=== PATIENT | female | born 1995 | race Two or more races ===

== ENCOUNTER → 2024-09-24 | Day surgery (SDC) | payer MEDICAID, SELFPAY ==
--- NOTE | 2024-09-23 12:25 | ESHP_ITS ---
RE: VERO BUI : 1995 DATE OF ADMISSION: 09/24/2024 HISTORY OF PRESENT ILLNESS: The patient came to my office on 09/23/2024 for detailed preop history and physical examination. HISTORY OF PRESENTING COMPLAINT: The patient has got a mass over the dorsum of the right wrist. It is mobile, but it is quite painful. It interferes with the routine daily activities and activities of daily living. The patient wanted to be excised as it is causing a lot of difficulty. PAST MEDICAL HISTORY: No history of diabetes mellitus, asthma, seizures, or high blood pressure. PAST SURGICAL HISTORY: Nil. DRUG HISTORY: Pain medications on and off. ALLERGIES: NIL KNOWN. FAMILY HISTORY AND SOCIAL HISTORY: Noncontributory. PHYSICAL EXAMINATION: GENERAL: Normal built lady. VITAL SIGNS: Pulse 86 per minute. Blood pressure 118/76. NECK: Soft, supple. No masses felt. Trachea is centrally placed. CARDIOVASCULAR: First and second heart sound normal. No murmur heard. LUNGS: Bilateral vesicular breath sounds. CHEST: Clear. ABDOMEN: Soft. No masses felt. Bowel sounds present. EXTREMITIES: Right wrist examination revealed swelling over the dorsum of the right wrist. It is about 3/4 inch in diameter. It is soft and mobile. It seems to be attached to the tendon. Clinically, it is a ganglion cyst. ASSESSMENT AND PLAN: Since the patient is symptomatic and is causing her difficulty and activities of daily living is affected. Therefore, excision of the cyst was discussed and advised. Risks with anesthesia was explained and that includes, but not limited to reaction to anesthetic agents, cardiac arrest and rarely it might be fatal. Risk with operations include infection and if that happens, the patient will need further surgical procedure. Other risks include delayed healing, wound dehiscence, etc. Sometimes there is a possible damage to tendon. No guarantees given regarding outcomes of the procedure. Accordingly, surgery is booked for 09/24/2024. Appropriate lab work done. DT: 11:57:36 TT: 12:23:00 Ref: [id number] - TID: [id number]
[2024-09-23 12:48] VITALS: BMI 28.5
[2024-09-23 13:18] LABS: Basophils # (Auto) 0.1 Thou/mm3 (0.0-0.2); Basophils % (Auto) 1 % (0-2.5); Eosinophils # (Auto) 0.2 Thou/mm3 (0.0-0.5); Eosinophils % (Auto) 3 % (0-10); Hematocrit 38.9 % (36.0-46.0); Hemoglobin 12.5 g/dL (12.0-16.0); Immature Granulocytes % (Auto) 0 % (0-0); Immature Granulocytes Auto 0.02 Thou/mm3 (0.00-0.00); Lymphocytes # (Auto) 3.1 Thou/mm3 (1.0-4.8); Lymphocytes % (Auto) 40 % (10-50); Mean Corpuscular HGB Conc 32.1 g/dl (31.0-37.0); Mean Corpuscular Hemoglobin 26.7 pg (25.0-35.0); Mean Corpuscular Volume 83 fL (80-100); Monocytes # (Auto) 0.4 Thou/mm3 (0.0-0.8); Monocytes % (Auto) 5 % (0-12); Neutrophils # (Auto) 3.9 Thou/mm3 (1.8-7.7); Neutrophils % (Auto) 51 % (37-80); Nucleated Red Blood Cell % 0 /100 WBC (0); Platelet Count 301 Thou/mm3 (140-440); RDW Standard Deviation 42.5 fL (36.4-46.3); Red Blood Count 4.68 Miln/mm3 (4.00-5.20); White Blood Count 7.7 Thou/mm3 (3.6-11.0)
[2024-09-23 13:31] LABS: HCG,Qualitative Serum Negative
[2024-09-23 13:32] LABS: Anion Gap 8 (7-16); BUN/Creatinine Ratio 15 Ratio (12-20); Blood Urea Nitrogen 9 mg/dL (9-23); Calcium 9.5 mg/dL (8.3-10.6); Carbon Dioxide 28.1 mMol/L (20.0-31.0); Chloride 103 mMol/L (98-107); Creatinine (Component) 0.6 mg/dL (0.6-1.3); Estimated Creatinine Clearance 128.5 mL/min (>60); Glucose 90 mg/dL (74-106); Osmolality,Calculated 276 (275-295); Sodium 139 mMol/L (136-145); eGFR > 60 See Note
--- NOTE | 2024-09-23 14:35 | SUR.PREOP ---
Pt notified to come in tomorrow at 0545 for surgery.
[2024-09-24] VITALS (10 sets, daily range): BP systolic 97–141; BP diastolic 57–88; PULSE 65–85; RESP 12–20; TEMP 36.7–36.8; O2SAT 96–100; BMI 27.8
[2024-09-24] MEDS: RINGERS LACTATED 1000 ML 1,000 ML 20 ML IV (06:53)
--- NOTE | 2024-09-24 07:33 | SUR.PREOP ---
Patient expressed gratitude for prayer before their procedure.
--- NOTE | 2024-09-24 08:13 | PD.SUROPNT ---
Date of Procedure 09/24/24 Pre Op Diagnosis Ganglion cyst dorsum of the right wrist Post Op Diagnosis Same Procedure Excision of cyst Findings Refer dictation Procedure Description Patient was given general anesthesia. Once satisfactory anesthesia achieved a tourniquet was placed on right upper arm. Following that the part was thoroughly prepped and draped. After using Esmarch the tourniquet pressure was raised to 250 mmHg The cyst was present over the dorsum of the right wrist. The the wrist was flexed. I skin incision was made over the top of the cyst in the vertical fashion. The length of the incision was about inch and 1/2 to 2 inches. Deeper dissection was carried out. Subcu tissue and fascia was incised. Care was taken not to damage the extensor tendon. Following that cyst was excised. It was communicating to the joint. The cyst was sent for histopathological examination Wound was irrigated with antibiotic solution every 4 to 5 minutes The extensor retinaculum was then closed with the help of 2-0 Vicryl in an interrupted fashion. Subcu tissue was closed with 2-0 Vicryl in an interrupted fashion. The skin was closed with the 3-0 Prolene in an interrupted fashion. A 10 mL of quarter percent Marcaine was injected at the skin incision site To cleaning the wound with hydrogen peroxide solution a sterile dressing was applied and tourniquet pressure was released Patient tolerated procedure well. Estimated blood loss 1 mL Exparel prognosis in this case is fair to good Anesthesia GETA Pathology / specimen None Estimated Blood Loss 1 Surgeon Ankit Chung MD Surgical Staff Operation Date: 09/24/24 07:30 <No data on this case meets the specified criteria>
--- NOTE | 2024-09-24 08:48 | SUR.PHASEI ---
Pt arrive to PACU at 0826, unarousable, oral airway in place, on oxygen 8L via oxy mask. Breathing unlabored, VSS. Dressing to RUE wrist, sutures, adaptic, fluffs, bias roll and silk tape, CDI. Right hand warm and pink with brisk cap refill. Right brachial pulse strong. Report from Eliseo HAMLIN and Benji LOPEZ.
--- NOTE | 2024-09-24 09:35 | SUR.PHASEII ---
0935 pt meets dc criteria from recovery. VSS, dressing CDI. Right hand warm and pink. Denies any pain. Tolerating jello and apple juice with no nausea. at bedside, DC teaching done, all questions answered. signed DC instructions. Pt able to dress herself with assist. IV DC'd, tolerated well. All belongings returned, pt transported via to curb and into car with . DC complete.
== END | disposition home or self-care (01) ==
PROVIDERS: PCP Family Medicine; Referring Provider Orthopaedic Surgery; Visit Provider Orthopaedic Surgery
PROC: (CPT 25111; principal; 2024-09-24 07:30)
DX: M67.431 Ganglion, right wrist (principal)
CPT/HCPCS: 25111; 36415; 80048; 84703; 85025; A4217; A4649; J0131; J0690; J1100; J1580; J1885; J2405; J2704; J3010; J3490; J7120